=== PATIENT | female | born 1995 | race Hispanic/Latino ===

== ENCOUNTER 2020-12-31 14:02 | Emergency (ER) | payer SELFPAY ==
--- NOTE | 2020-12-31 15:16 | ER ---
Nurse's Notes [facility] Name: Maggie Pettit Age: 25 yrs Sex: Female : 1995 Arrival Date: 12/31/2020 Time: 14:10 Bed Waiting Private MD: Diagnosis: ED Course: 12/31 14:10 Patient arrived in ED. as Administered Medications: No medications were administered Outcome: 15:15 Patient left the ED. hb Signatures: Sonali Franz Heather, RN RN hb
== END 2020-12-31 15:15 | disposition left against medical advice (07) ==
LOC: ER 14:02
DX: Z02.9 Encounter for administrative examinations, unspecified (principal)